=== PATIENT | male | born 1960 | race African-American/Black ===

== ENCOUNTER 2018-10-24 12:55 | Emergency (ER) | payer OTHER ==
[~2018-10-24] VITALS: Ht 180.3 cm; Wt 72.6 kg
[2018-10-24 15:15] VITALS: BP 110/67
== END 2018-10-24 15:16 | disposition home or self-care (01) ==
LOC: ER 12:55
DX: F10.20 Alcohol dependence, uncomplicated (principal); S70.01XA Contusion of right hip, initial encounter; F31.9 Bipolar disorder, unspecified; W17.89XA Other fall from one level to another, initial encounter; Y93.89 Activity, other specified; Y92.89 Other specified places as the place of occurrence of the external cause; Y99.8 Other external cause status

== ENCOUNTER 2019-11-22 10:52 | Emergency (ER) | payer OTHER ==
[~2019-11-22] VITALS: Ht 180.3 cm; Wt 74.8 kg
[2019-11-22] MEDS ORDERED: NAPROSYN500 MG PO (13:18)
[2019-11-22 15:15] VITALS: BP 102/68
== END 2019-11-22 15:44 | disposition home or self-care (01) ==
LOC: ER 10:52
DX: S62.511A Displaced fracture of proximal phalanx of right thumb, initial encounter for closed fracture (principal); F10.129 Alcohol abuse with intoxication, unspecified; F31.9 Bipolar disorder, unspecified; W18.39XA Other fall on same level, initial encounter; Y93.89 Activity, other specified; Y92.89 Other specified places as the place of occurrence of the external cause; Y99.8 Other external cause status; Y90.9 Presence of alcohol in blood, level not specified